=== PATIENT | male | born 1990 | race Caucasian/White ===

== ENCOUNTER 2016-08-03 11:03 | Observation (INO) | payer BC ==
[2016-08-03] VITALS (7 sets, daily range): BP systolic 92–125; BP diastolic 46–68; PULSE 59–73; TEMP 36.5–37; O2SAT 96–99; Ht 182.9 cm; Wt 89.3 kg
[~2016-08-03] VITALS: Ht 182.9 cm; Wt 89.3 kg
[2016-08-03 11:48] LABS: BASO % 0.1 %; BASO ABS # 0.01 K/uL (0-0.2); COMPLETE YES; EOS % 0.4 %; HEMATOCRIT 47.2 % (42-52); IG% 0.1 %; LYMPH % 23.7 %; LYMPH ABS # 1.74 K/uL (1.2-3.4); MEAN CELL VOLUME 88.1 fL (80-100); MEAN CORPUSCULAR HEMOGLOBIN 31.7 pg (25-34); MEAN PLATELET VOLUME 10.9 fL (7.4-10.4); MONO % 11.9 %; NEUT % 63.8 %; PLATELET COUNT 180 K/uL (130-400); RED BLOOD COUNT 5.36 M/uL (4.7-6.1); WHITE BLOOD COUNT 7.34 K/uL (4.8-10.8)
[2016-08-03 12:08] LABS: BUN/CREATININE RATIO 9.8 (10-20); CALCIUM 8.8 mg/dl (8.5-10.1); CREATININE 0.96 mg/dl (0.60-1.40); POTASSIUM 3.6 mmol/L (3.5-5.1)
[2016-08-03 12:10] LABS: ALB/GLOB RATIO 1.1 (0.9-2)
[2016-08-03] MEDS ORDERED: SODIUM CHLORIDE 0.9% 1000ML 1,000 ML IV STA (12:16)
--- NOTE | 2016-08-03 12:20 | EMERGENCY ROOM VISIT NOTE ---
History First contact with patient: 12:06 Chief Complaint: GI ASSESSMENT Stated Complaint: INTESTINAL PAIN Nursing Triage Summary: pt report abd pain started went to pcp today when pressed on right side had tenderness sent here for eval denies any n/v History of Present Illness The patient is a 25 year old male who presents to the Emergency Room with complaints of abdominal pain. The patient states that his pain started in the upper abdomen 3 days ago. He states that over the last 3 days the pain has moved to the lower abdomen. He rates his discomfort a 3/10. It does not radiate. He denies any nausea, vomiting, fever or diarrhea. He denies any recent illness. He denies any testicular pain. He denies any urinary symptoms. He denies any diarrhea. He was seen and his family doctor's office today and referred to the emergency department for further evaluation and management. Review of Systems A 10 system review of systems was completed with positives and pertinent negatives listed in the HPI. Past Medical/Surgical History Medical Problems: (1) Acute appendicitis, uncomplicated Patient denies Social History Smoking Status: Never Smoker Housing Status: lives with family Current/Historical Medications Scheduled Multivitamin (Multivitamin), 1 TAB PO DAILY Allergies Coded Allergies: No Known Allergies (Unverified , 08/03/16) Physical Exam Vital Signs Date Time Temp Pulse Resp B/P Pulse Ox O2 Delivery O2 Flow Rate FiO2 08/03/16 17:31 36.9 78 22 127/61 98 Mask 10 08/03/16 16:02 104 18 157/91 100 08/03/16 13:57 88 16 137/81 95 Room Air 08/03/16 11:24 36.9 117 18 135/76 99 Room Air Physical Exam VITALS: Vitals are noted on the nurse's note and reviewed by myself. Vital signs stable. The patient is afebrile. GENERAL: This is a 25-year-old male, in no acute distress, nondiaphoretic, well- developed well-nourished. SKIN: The skin was without rashes, erythema, edema, or bruising. There is no tenting of the skin. Capillary reflex less than 2 seconds. HEAD: Normocephalic atraumatic. EARS: The external ears are normal in appearance. EYES: Pupils equal round and reactive to light and accommodation. Conjunctivae without injection, sclerae without icterus. Extraocular movements intact. NOSE: Patent, turbinates without inflammation or discharge. MOUTH: Mucous membranes moist. Tonsils are not enlarged. Pharynx without erythema or exudate. Uvula midline. Airway patent. Tongue does not deviate. NECK: Supple without nuchal rigidity. No JVD. HEART: Regular rate and rhythm without murmurs gallops or rubs. LUNGS: Clear to auscultation bilaterally without wheezes, rales or rhonchi. No retractions or accessory muscle use. ABDOMEN: Positive bowel sounds x 4. Soft, moderate right lower quadrant tenderness, without masses or organomegaly. MUSCULOSKELETAL: No muscle atrophy, erythema, or edema noted. Full range of motion without joint tenderness in all extremities. No tenderness to palpation. Normal gait. Strength 5/5 throughout. NEURO: Patient was alert and oriented to person place and time. No focal neurological deficits. Medical Decision & Procedures ER Provider Diagnostic Interpretation: ABDOMEN AND PELVIS CT WITH IV AND ORAL CONTRAST CT DOSE: 423.41 mGy.cm HISTORY: Pain. Nausea. RLA pain TECHNIQUE: Multiaxial CT images of the abdomen and pelvis were performed following the use of intravenous and oral contrast. COMPARISON STUDY: None. FINDINGS: Lung bases are clear. Liver spleen and pancreas appear unremarkable. Kidneys are unremarkable in appearance. Gallbladder is negative for distention. Bowel pattern is nonobstructive. Right lower quadrant shows a generalized inflammatory change of the periappendiceal region. The appendix is inferior to the cecum and is lateral. Has maximum diameter of 10 mm. There is moderate periappendiceal infiltrative change. A well-defined abscess or collection is not appreciated. There is a small amount of reactive free fluid within the right paracolic gutter and pelvic cul-de-sac. Bladder is midline. Bowel pattern overall is nonobstructive. IMPRESSION: 1. Acute appendicitis. 2. Moderate periappendiceal infiltrative change. 3. No evidence for abscess collection or obstruction. Laboratory Results 08/03/16 11:35 Red Blood Count 5.36, Mean Corpuscular Volume 88.1, Mean Corpuscular Hemoglobin 31.7, Mean Corpuscular Hemoglobin Concent 36.0, Mean Platelet Volume 10.9, Neutrophils (%) (Auto) 63.8, Lymphocytes (%) (Auto) 23.7, Monocytes (%) (Auto) 11.9, Eosinophils (%) (Auto) 0.4, Basophils (%) (Auto) 0.1, Neutrophils # (Auto ) 4.68, Lymphocytes # (Auto) 1.74, Monocytes # (Auto) 0.87, Eosinophils # (Auto ) 0.03, Basophils # (Auto) 0.01 08/03/16 11:35 Test 08/03/16 11:35 White Blood Count 7.34 K/uL (4.8-10.8) Red Blood Count 5.36 M/uL (4.7-6.1) Hemoglobin 17.0 g/dL (14.0-18.0) Hematocrit 47.2 % (42-52) Mean Corpuscular Volume 88.1 fL (80-100) Mean Corpuscular Hemoglobin 31.7 pg (25-34) Mean Corpuscular Hemoglobin Concent 36.0 g/dl (32-36) Platelet Count 180 K/uL (130-400) Mean Platelet Volume 10.9 fL (7.4-10.4) Neutrophils (%) (Auto) 63.8 % Lymphocytes (%) (Auto) 23.7 % Monocytes (%) (Auto) 11.9 % Eosinophils (%) (Auto) 0.4 % Basophils (%) (Auto) 0.1 % Neutrophils # (Auto) 4.68 K/uL (1.4-6.5) Lymphocytes # (Auto) 1.74 K/uL (1.2-3.4) Monocytes # (Auto) 0.87 K/uL (0.11-0.59) Eosinophils # (Auto) 0.03 K/uL (0-0.5) Basophils # (Auto) 0.01 K/uL (0-0.2) RDW Standard Deviation 42.0 fL (36.4-46.3) RDW Coefficient of Variation 13.2 % (11.5-14.5) Immature Granulocyte % (Auto) 0.1 % Immature Granulocyte # (Auto) 0.01 K/uL (0.00-0.02) Anion Gap 9.0 mmol/L (3-11) Est Creatinine Clear Calc Drug Dose 129.1 ml/min Estimated GFR () 126.8 Estimated GFR (Non- 109.4 BUN/Creatinine Ratio 9.8 (10-20) Calcium Level 8.8 mg/dl (8.5-10.1) Total Bilirubin 0.5 mg/dl (0.2-1) Aspartate Amino Transf (AST/SGOT) 14 U/L (15-37) Alanine Aminotransferase (ALT/SGPT) 25 U/L (12-78) Alkaline Phosphatase 63 U/L (45-117) Total Protein 8.1 gm/dl (6.4-8.2) Albumin 4.2 gm/dl (3.4-5.0) Globulin 3.9 gm/dl (2.5-4.0) Albumin/Globulin Ratio 1.1 (0.9-2) Lipase 125 U/L (73-393) Medications Administered Medications (Trade) Dose Ordered Sig/Lang Route Start Time Stop Time Status Last Admin Dose Admin Sodium Chloride (Nss 1000ml) 1,000 ml @ 999 mls/hr Q1H1M STAT IV 08/03/16 12:16 08/03/16 13:16 DC 08/03/16 12:16 999 MLS/HR Cefoxitin Sodium (Mefoxin IV) 2,000 mg NOW STAT IV 08/03/16 15:11 08/03/16 15:12 DC 08/03/16 15:11 2,000 MG Bupivacaine HCl/ Epinephrine Bitart (Sensorcaine/ Epinephrine 0.5% Mpf 1:200,000) 30 ml STK-MED ONCE .ROUTE 08/03/16 15:52 08/03/16 15:55 DC 08/03/16 17:16 20 ML ED Course The patient was seen and examined. Previous visits were reviewed. The patient does not have a fever or leukocytosis. He does not have any significant electrolyte abnormalities. Lipase was not elevated. CT scan of the abdomen and pelvis with IV and oral contrast suggests acute appendicitis. The patient was hydrated with normal saline After discussion with general surgery, 2 g of IV Mefoxin was ordered The case was discussed with Dr. James who will evaluate the patient. The case was discussed with Dr. Pritchett who agrees with the assessment and treatment plan. Medical Decision DIFFERENTIAL DIAGNOSIS: Hepatitis, cholecystitis, cholangitis, biliary colic, pancreatitis, pneumonia, subdiaphragmatic abscess, appendicitis, inguinal hernia , nephrolithiasis, inflammatory bowel disease, mesenteric adenitis, peptic ulcer disease, GERD, gastritis, pancreatitis, myocardial infarction, pericarditis, ruptured aortic aneurysm, appendicitis, gastroenteritis, bowel obstruction, splenic infarct, diverticulitis, mesenteric ischemia, metabolic, peritonitis, among others. Impression Primary Impression: Acute appendicitis, uncomplicated Departure Information Referrals Carloz Ortega M.D. (PCP) Patient Instructions [facility]
[2016-08-03] MEDS ORDERED: MULT-506 PO (12:27)
[2016-08-03] MEDS ORDERED: OPTIRAY 320 IV PRN (12:30)
--- NOTE | 2016-08-03 14:58 | DIAGNOSTIC IMAGING REPORT ---
ABDOMEN AND PELVIS CT WITH IV AND ORAL CONTRAST CT DOSE: 423.41 mGy.cm HISTORY: Pain. Nausea. RLA pain TECHNIQUE: Multiaxial CT images of the abdomen and pelvis were performed following the use of intravenous and oral contrast. COMPARISON STUDY: None. FINDINGS: Lung bases are clear. Liver spleen and pancreas appear unremarkable. Kidneys are unremarkable in appearance. Gallbladder is negative for distention. Bowel pattern is nonobstructive. Right lower quadrant shows a generalized inflammatory change of the periappendiceal region. The appendix is inferior to the cecum and is lateral. Has maximum diameter of 10 mm. There is moderate periappendiceal infiltrative change. A well-defined abscess or collection is not appreciated. There is a small amount of reactive free fluid within the right paracolic gutter and pelvic cul-de-sac. Bladder is midline. Bowel pattern overall is nonobstructive. IMPRESSION: 1. Acute appendicitis. 2. Moderate periappendiceal infiltrative change. 3. No evidence for abscess collection or obstruction. Electronically signed by: Luiz Barker M.D. 08/03/2016 2:56 PM Dictated Date/Time: 08/03/2016 2:53 PM
[2016-08-03] MEDS ORDERED: CEFOXITIN SOD 2 GM VIAL IV STA (15:11)
[2016-08-03] MEDS ORDERED: BUPIVACAINE/EPINEPHRINE 0.5% MPF 1:200,000 30 ML VIAL ONE (15:52)
--- NOTE | 2016-08-03 15:59 | History and Physical ---
History & Physical Date Aug 03, 2016. Chief Complaint 25 y/o with a 2 day history of abdominal pain/mild nausea...started in mid abdomen now into RLQ. CT reveals acute appendicitis History of Present Illness The patient is a 25 year old male with complaints of Additional History Hepatic Disease: No Endocrine Disorder: No Kidney Disease: No Hypertension: No Heart Disease: No Bleeding Tendencies: No Infectious Diseases: No Allergies Coded Allergies: No Known Allergies (Unverified , 08/03/16) Home Medications Scheduled Multivitamin (Multivitamin), 1 TAB PO DAILY Physical Examination Skin: warm/dry Eyes: normal inspection, EOMI ENT: normal ENT inspection Head: normocephalic Neck: supple, no adenopathy Respiratory/Chest: normal breath sounds, no respiratory distress Cardiovascular: regular rate, rhythm Abdomen / GI: + pertinent finding (+RLQ ttp with guarding. ) Neurologic/Psych: alert, oriented x 3 Diagnosis 1. acute appendicitis discussed risks ( bleeding/infection/dvt/pe/injury to another organ/staple line leaks etc...) answered questions ok to proceed.
[2016-08-03] MEDS ORDERED: FENTANYL CITRATE INJ 50 MCG/1 ML 2 ML VIAL ONE ×3 (16:08→17:34)
[2016-08-03] MEDS ORDERED: MIDAZOLAM HCL 1 MG/ML 2ML VIAL ONE (16:09)
[2016-08-03] MEDS ORDERED: MEPERIDINE HCL 25 MG/ML CARP IV PRN (16:15)
[2016-08-03] MEDS ORDERED: ATROPINE SULFATE 0.1 MG/ML 5ML SYR IV PRN (16:15)
[2016-08-03] MEDS ORDERED: FLUMAZENIL 0.1 MG/1 ML 10 ML VIAL IV PRN (16:15)
[2016-08-03] MEDS ORDERED: EpHEDrine SULFATE INJ 50 MG/ML AMP IV PRN (16:15)
[2016-08-03] MEDS ORDERED: PHENYLEPHRINE 100MCG/ML 5ML SYR IV PRN (16:15)
[2016-08-03] MEDS ORDERED: ONDANSETRON INJ 2 MG/ML 2 ML VIAL IV PRN ×2 (16:15→17:30)
[2016-08-03] MEDS ORDERED: LABETALOL HCL IV 5 MG/ML 20ML IV PRN (16:15)
[2016-08-03] MEDS ORDERED: NALOXONE HCL 0.4 MG/1 ML VIAL/CARP IV PRN (16:15)
[2016-08-03] MEDS ORDERED: HYDROmorphone INJ 2 MG/ML SYR/VIAL IV PRN (16:15)
[2016-08-03] MEDS ORDERED: SUCCINYLCHOLINE 100MG/5ML SYR IV ONE (16:32)
[2016-08-03] MEDS ORDERED: ROCURONIUM BROMID 50MG/5ML SYR ONE (16:32)
[2016-08-03] MEDS ORDERED: ONDANSETRON INJ 2 MG/ML 2 ML VIAL ONE (16:32)
[2016-08-03] MEDS ORDERED: LIDOCAINE HCL 2% 2 ML VIAL (20MG/ML) ONE (16:32)
[2016-08-03] MEDS ORDERED: GLYCOPYRROLATE INJ 0.2 MG/ML VIAL ONE (16:32)
[2016-08-03] MEDS ORDERED: NEOSTIGMINE METHYLSULFATE 5 MG/5 ML SYR ONE (16:32)
[2016-08-03] MEDS ORDERED: KETOROLAC TROMETHAMINE 30 MG/ML VIAL ONE (16:32)
[2016-08-03] MEDS ORDERED: PROPOFOL IV EMULSION 10 MG/ML 20 ML VIAL IV ONE (16:32)
[2016-08-03] MEDS ORDERED: DEXAMETHASONE SOD INJ 4 MG/ML VIAL ONE (16:32)
--- NOTE | 2016-08-03 17:22 | [facility] Operative Report ---
Operative Report Operative Date Aug 03, 2016. Pre-Operative Diagnosis Acute appendicitis Post-Operative Diagnosis acute appendicitis Procedure(s) Performed lap appy Surgeon Dr. James Estimated Blood Loss 20cc Findings acutely inflammed appendix with pus/slight perforation Specimens A. Appendix Anesthesia get Complication(s) None Disposition Recovery Room / PACU I attest to the content of the Intraoperative Record and any orders documented therein. Any exceptions are noted below.
[2016-08-03] MEDS ORDERED: MoRPHine SULFATE 4 MG/ML 1 ML CARP\\VIAL IV PRN (17:30)
[2016-08-03] MEDS ORDERED: IBUPROFEN 600 MG TAB PO PRN (17:30)
[2016-08-03] MEDS ORDERED: HYDROCODONE/ACETAMOPHEN 5/325MG TAB PO PRN ×2 (17:30)
[2016-08-03] MEDS ORDERED: MoRPHine SULFATE 2 MG/ML CARP IV PRN (17:30)
--- NOTE | 2016-08-03 17:35 | Discharge Instructions ---
Discharge Instructions Date of Service Aug 03, 2016. Admission Reason for Admission: Intestinal Pain Discharge Discharge Diagnosis / Problem: acute appendicitis Discharge Goals Goal(s): Decrease discomfort Activity Recommendations Activity Limitations: as noted below Lifting Limitations: no more than 10 pounds Exercise/Sports Limitations: until after follow-up appointment May Resume Sexual Activity: after follow-up appointment Shower/Bathe: no limitations . Instructions / Follow-Up Instructions / Follow-Up call [phone] to schedule a f/u appointment with dr. james or if you have any questions/problems Current Hospital Diet Patient's current hospital diet: Clear Liquid Diet Discharge Diet Recommended Diet: Regular Diet Procedures Procedures Performed: Laparoscopic appendectomy Pending Studies Studies pending at discharge: yes List of pending studies: path report Medical Emergencies . Who to Call and When: Medical Emergencies: If at any time you feel your situation is an emergency, please call 911 immediately. . Non-Emergent Contact Non-Emergency issues call your: Primary Care Provider, Surgeon Call Non-Emergent contact if: temperature is above 101, wound has increased drainage, wound has increased redness, wound has increased pain . "Provider Documentation" section prepared by Albert James. VTE Core Measure Inpt VTE Proph given/why not?: SCD's
[2016-08-03] MEDS: FENTANYL CITRATE INJ 50 MCG/1 ML 2 ML VIAL IV PRN ×4 (17:38→17:53)
--- NOTE | 2016-08-03 17:50 | Anesthesiology Progress Note ---
Anesthesia Post Op Note Date & Time Aug 03, 2016 at 17:50 Vital Signs Pain Intensity: 3 Vital Signs Past 12 Hours Date Time Temp Pulse Resp B/P Pulse Ox O2 Delivery O2 Flow Rate FiO2 08/03/16 17:40 61 18 134/65 97 Mask 10 08/03/16 17:31 36.9 78 22 127/61 98 Mask 10 08/03/16 16:02 104 18 157/91 100 08/03/16 13:57 88 16 137/81 95 Room Air 08/03/16 11:24 36.9 117 18 135/76 99 Room Air Notes Mental Status: alert / awake / arousable, participated in evaluation Pt Amnestic to Procedure: Yes Nausea / Vomiting: adequately controlled Pain: adequately controlled Airway Patency, RR, SpO2: stable & adequate BP & HR: stable & adequate Hydration State: stable & adequate Anesthetic Complications: no major complications apparent
--- NOTE | 2016-08-03 18:40 | OPERATIVE REPORT ---
DATE OF OPERATION: 08/03/2016 PREOPERATIVE DIAGNOSIS: Acute appendicitis. POSTOPERATIVE DIAGNOSIS: Same. PROCEDURE: Laparoscopic appendectomy. SURGEON: Dr. James. ESTIMATED BLOOD LOSS: Approximately 20 mL. COMPLICATIONS: No immediate. ANESTHESIA: General. The patient tolerated the procedure well. DESCRIPTION OF PROCEDURE: After informed consent was obtained, the patient was taken to the operating suite, placed in the supine position. After successful intubation, the left arm was tucked and the abdomen was shaved and sterilely prepped and draped in usual fashion. A periumbilical incision made with an 11 blade scalpel and carried down through the soft tissue using electrocautery. The anterior rectus fascia was opened using electrocautery and two #0 Vicryl stay sutures were placed. Peritoneum was elevated with hemostats and incised under direct vision using a Metzenbaum scissors. A finger sweep was performed. A 12 mm Christy trocar was placed and the abdomen was insufflated to 18 mmHg. The patient was placed in Trendelenburg position slightly airplaned to the left. The camera was inserted. We placed a suprapubic 5-mm port and a left lower quadrant 12 mm port under direct vision. There was acute inflammation in the right lower quadrant and when we pulled the omentum off there was an acute appendicitis. There was very mild perforation with a little bit of localized pus, but no purulent fluid elsewhere. We were able to use blunt graspers to dissect the cecum and the terminal ileum away from the appendix and pull away from the side wall. Once I did this, I was able to make a hole in the mesoappendix with a [place] dissector. A FRANK jefferson cartridge stapler was inserted and the appendix was stapled off at its base with the cecum. Similar fashion I used a jefferson cartridge 60 FRANK 2 firings of this to come across the mesoappendix itself. We thoroughly irrigated the right lower quadrant as well as the pelvis, suctioned it dry. There was adequate hemostasis at the end of the procedure. I did run the terminal ileum for several feet backwards from the cecum, saw no other gross abnormalities. The remainder of the anatomy that we could visualize all appeared normal. We did a final irrigation and then placed the appendix into an EndoCatch bag and removed it from the camera port site. The appendix was removed the trocars were all removed and the abdomen was desufflated. The fascia of the camera port as well as left lower quadrant were closed with 0 Vicryl in [id number] fashion. The wounds were all irrigated and closed using 4-0 Monocryl. Marcaine was injected around them for postoperative analgesia and skin glue used as a dressing. The patient was awakened, extubated, and transferred to recovery in stable condition. I attest to the content of the Intraoperative Record and any orders documented therein. Any exceptio ns are noted below.
[2016-08-03] MEDS: LACTATED RINGER'S 1000ML 1,000 ML IV SCH (19:38)
[2016-08-04] MEDS: CEFOXITIN IV 2,000 MG in DEXTROSE 5% 50ML 50 ML IV SCH ×2 (00:02→07:54)
[2016-08-04] MEDS: LACTATED RINGER'S 1000ML 1,000 ML IV SCH ×3 (02:51→12:14)
[2016-08-04 03:08] VITALS: BP 121/65; PULSE 74; TEMP 36.8; O2SAT 96
[2016-08-04 06:36] LABS: BASO % 0.1 %; BASO ABS # 0.01 K/uL (0-0.2); COMPLETE YES; HEMATOCRIT 42.4 % (42-52); LYMPH % 12.8 %; LYMPH ABS # 1.06 K/uL (1.2-3.4); MEAN CELL VOLUME 90.2 fL (80-100); MEAN CORPUSCULAR HEMOGLOBIN 31.7 pg (25-34); MEAN CORPUSCULAR HGB CONC 35.1 g/dl (32-36); MEAN PLATELET VOLUME 11.1 fL (7.4-10.4); MONO % 9.9 %; NEUT % 77.2 %; PLATELET COUNT 158 K/uL (130-400); WHITE BLOOD COUNT 8.31 K/uL (4.8-10.8)
--- NOTE | 2016-08-04 07:22 | Surgery Progress Note ---
Surgery Progress Note Date of Service Aug 04, 2016. Subjective Post OP Day: 1 + feeling well having some "gas " pain but overall doing well pain control adequate cesar liquids Objective Vital Signs: Date Time Temp Pulse Resp B/P Pulse Ox O2 Delivery O2 Flow Rate FiO2 08/04/16 03:08 36.8 74 14 121/65 96 Room Air 08/04/16 00:00 Room Air 08/03/16 23:00 36.9 73 14 125/67 96 Room Air 08/03/16 21:15 36.9 59 16 116/62 99 Nasal Cannula 2.0 08/03/16 20:15 37.0 66 16 106/59 99 Nasal Cannula 2.0 08/03/16 19:15 36.5 60 16 111/68 98 Nasal Cannula 2.0 08/03/16 19:08 99 Nasal Cannula 2.0 08/03/16 18:47 63 96/52 08/03/16 18:45 36.9 59 16 92/46 97 Nasal Cannula 2.0 08/03/16 18:34 36.5 61 16 114/68 99 Nasal Cannula 2.0 08/03/16 18:11 36.4 08/03/16 18:10 66 18 139/70 99 Nasal Cannula 2 08/03/16 18:00 60 18 131/67 99 Nasal Cannula 2 08/03/16 17:50 56 18 123/61 98 Mask 10 08/03/16 17:40 61 18 134/65 97 Mask 10 08/03/16 17:31 36.9 78 22 127/61 98 Mask 10 08/03/16 16:02 104 18 157/91 100 08/03/16 13:57 88 16 137/81 95 Room Air 08/03/16 11:24 36.9 117 18 135/76 99 Room Air General Appearance: no apparent distress Head: normocephalic Abdomen: non distended, soft Incision(s): clean, dry, intact, no erythema Extremities: normal inspection Laboratory Results: Results Past 24 Hours Test 08/03/16 11:35 08/04/16 05:55 Range/Units White Blood Count 7.34 8.31 4.8-10.8 K/uL Red Blood Count 5.36 4.70 4.7-6.1 M/uL Hemoglobin 17.0 14.9 14.0-18.0 g/dL Hematocrit 47.2 42.4 42-52 % Mean Corpuscular Volume 88.1 90.2 80-100 fL Mean Corpuscular Hemoglobin 31.7 31.7 25-34 pg Mean Corpuscular Hemoglobin Concent 36.0 35.1 32-36 g/dl Platelet Count 180 158 130-400 K/uL Mean Platelet Volume 10.9 11.1 7.4-10.4 fL Neutrophils (%) (Auto) 63.8 77.2 % Lymphocytes (%) (Auto) 23.7 12.8 % Monocytes (%) (Auto) 11.9 9.9 % Eosinophils (%) (Auto) 0.4 0.0 % Basophils (%) (Auto) 0.1 0.1 % Neutrophils # (Auto) 4.68 6.42 1.4-6.5 K/uL Lymphocytes # (Auto) 1.74 1.06 1.2-3.4 K/uL Monocytes # (Auto) 0.87 0.82 0.11-0.59 K/uL Eosinophils # (Auto) 0.03 0.00 0-0.5 K/uL Basophils # (Auto) 0.01 0.01 0-0.2 K/uL RDW Standard Deviation 42.0 44.1 36.4-46.3 fL RDW Coefficient of Variation 13.2 13.3 11.5-14.5 % Immature Granulocyte % (Auto) 0.1 0.0 % Immature Granulocyte # (Auto) 0.01 0.00 0.00-0.02 K/uL Sodium Level 143 136-145 mmol/L Potassium Level 3.6 3.5-5.1 mmol/L Chloride Level 106 98-107 mmol/L Carbon Dioxide Level 28 21-32 mmol/L Anion Gap 9.0 3-11 mmol/L Blood Urea Nitrogen 9 7-18 mg/dl Creatinine 0.96 0.60-1.40 mg/dl Est Creatinine Clear Calc Drug Dose 129.1 ml/min Estimated GFR () 126.8 Estimated GFR (Non- 109.4 BUN/Creatinine Ratio 9.8 10-20 Random Glucose 85 70-99 mg/dl Calcium Level 8.8 8.5-10.1 mg/dl Total Bilirubin 0.5 0.2-1 mg/dl Aspartate Amino Transf (AST/SGOT) 14 15-37 U/L Alanine Aminotransferase (ALT/SGPT) 25 12-78 U/L Alkaline Phosphatase 63 45-117 U/L Total Protein 8.1 6.4-8.2 gm/dl Albumin 4.2 3.4-5.0 gm/dl Globulin 3.9 2.5-4.0 gm/dl Albumin/Globulin Ratio 1.1 0.9-2 Lipase 125 73-393 U/L Assessment & Plan pod #1 doing well ok for d/c later this am instructions given
[2016-08-04] MEDS ORDERED: HYDR-5688 PO (07:23)
[2016-08-04 07:27] LABS: ALB/GLOB RATIO 0.9 (0.9-2); BUN/CREATININE RATIO 8.2 (10-20); CALCIUM 8.9 mg/dl (8.5-10.1); CREATININE 0.78 mg/dl (0.60-1.40)
[2016-08-04 07:28] LABS: POTASSIUM 4.2 mmol/L (3.5-5.1)
[2016-08-04 08:34] VITALS: O2SAT 99
[2016-08-04 08:35] VITALS: BP 133/74; PULSE 82; TEMP 36.8; O2SAT 99
[2016-08-04 10:42] VITALS: BP 133/74; PULSE 82; TEMP 36.8; O2SAT 99
[2016-08-04 11:10] VITALS: BP 124/81; PULSE 86; TEMP 37; O2SAT 93
--- NOTE | 2016-08-04 12:45 | DISCHARGE SUMMARY ---
DISCHARGE DIAGNOSIS: Acute appendicitis. SUMMARY: This is a 25-year-old male who presented to the Emergency Room with a several-day history of abdominal pain, worsening and progressing in the right lower quadrant. Workup included a CT scan which showed acute appendicitis. He was taken to the operating room suite on 08/03/2016 and underwent an uncomplicated laparoscopic appendectomy. It was acutely inflamed. Following the procedure the patient was sent to the medical surg floor for postoperative recovery and symptom control. By postoperative day 1 the patient was feeling better. He was tolerating liquids and his pain was controlled and his preoperative pain was improved. He was deemed stable for discharge. He was discharged on 08/04/2016 with written and oral discharge instructions and a prescription for pain medicine. He is to followup with myself in the office in a one-week period.
[2016-08-04 13:01] VITALS: BP 135/69; PULSE 72; TEMP 36.2; O2SAT 95
== END 2016-08-04 14:26 | disposition home or self-care (01) ==
LOC: ENRESERVTM → ENRESERVDT → CANRESERV → C.EDB 11:05 → C.MSW 17:25
PROVIDERS: ADMIT Surgery; ATTEND Surgery
DX: K35.80 Unspecified acute appendicitis (principal)